=== PATIENT | female | born 1990 | race Caucasian/White ===

== ENCOUNTER 2020-02-04 01:28 | Observation (INO) | payer MEDICAID ==
[~2020-02-04] VITALS: Ht 152.4 cm; Wt 68.0 kg
[2020-02-04] MEDS ORDERED: PNV1TABL76 PO (02:37)
[2020-02-04] MEDS ORDERED: FOLI0.4T2 PO (02:37)
[2020-02-04 03:15] LABS: CLARITY URINE CLEAR (CLEAR); COLOR URINE YELLOW (YELLOW); KETONES URINE NEGATIVE (NEGATIVE); LEUKOCYTE ESTERASE URINE NEGATIVE (NEGATIVE); NITRITE URINE NEGATIVE (NEGATIVE); OCCULT BLOOD URINE NEGATIVE (NEGATIVE); PH URINE 7.5 (4.5-8.0); PROTEIN URINE NEGATIVE (NEGATIVE); SPECIFIC GRAVITY URINE 1.015 (1.005-1.030)
[2020-02-04] MEDS ORDERED: ACETAMINOPHEN 500MG TABLET PO NR (05:00)
== END 2020-02-04 05:20 | disposition home or self-care (01) ==
LOC: 8 EST LDRP 01:28
PROVIDERS: ADMIT Specialist; ATTEND Specialist
DX: O26.892 Other specified pregnancy related conditions, second trimester (principal); R10.9 Unspecified abdominal pain; O99.89 Other specified diseases and conditions complicating pregnancy, childbirth and the puerperium; M54.5 Low back pain; Z3A.26 26 weeks gestation of pregnancy
CPT/HCPCS: 76770; 81003; 99281; G0378

== ENCOUNTER 2022-12-10 17:05 | Inpatient (IN) | payer MEDICAID ==
[~2022-12-10] VITALS: Ht 162.6 cm; Wt 82.1 kg
[~2022-12-10 17:05] MED LIST: FOLI0.4T6 PO; PNV1TABL76 PO
[2022-12-10] MEDS ORDERED: AMPICILLIN 1,000 MG in SODIUM CHLORIDE 0.9% 50 ML IV SCH (20:45)
[2022-12-10] MEDS ORDERED: LIDOCAINE HCL 1% 20ML VIAL (Pyxis) INJ INFIL SCH (20:45)
[2022-12-10] MEDS ORDERED: LACTATED RINGERS 1,000 ML IV SCH (20:45)
[2022-12-10] MEDS ORDERED: AMPICILLIN 2GM in NS 100ML 100 ML IV SCH (20:45)
[2022-12-10] MEDS ORDERED: NALOXONE HCL 0.4 MG/ML 1ML VIAL IM PRN (20:45)
[2022-12-10] MEDS: LACTATED RINGERS 1,000 ML IV SCH (20:59)
[2022-12-10 21:38] LABS: BASOPHILS % 0.3 % (0.0-2.0); EOSINOPHILS % 0.4 % (0.0-5.0); HEMATOCRIT. 32.3 % (36.0-48.0); HEMOGLOBIN. 10.7 g/dL (12.0-16.0); MEAN CORPUSCULAR HEMOGLOBIN 24.6 pg (28.0-32.0); MEAN CORPUSCULAR VOLUME 74.2 fL (81.0-99.0); MEAN PLATELET VOLUME 9.1 fl (7.4-10.4); MONOCYTES % 7.4 % (2.0-8.0); NEUTROPHILS % 68.9 % (40.0-76.0); PLATELET 209 x1000/uL (130-400); RED BLOOD CELL COUNT 4.35 mill/uL (4.2-5.4); RED CELL DISTRIBUTION WIDTH 16.6 % (11.6-14.6)
[2022-12-10 21:42] LABS: CLARITY URINE CLOUDY (CLEAR); COLOR URINE YELLOW (YELLOW); KETONES URINE NEGATIVE (NEGATIVE); LEUKOCYTE ESTERASE URINE 3+ (NEGATIVE); NITRITE URINE NEGATIVE (NEGATIVE); OCCULT BLOOD URINE 3+ (NEGATIVE); PROTEIN URINE NEGATIVE (NEGATIVE); SPECIFIC GRAVITY URINE 1.009 (1.005-1.030)
[2022-12-10 21:55] LABS: *AMPHETAMINES SCREEN URINE NEGATIVE (NEGATIVE); *BARBITURATES SCREEN URINE NEGATIVE (NEGATIVE); *BENZODIAZEPINES SCREEN URINE NEGATIVE (NEGATIVE); *COCAINE SCREEN URINE NEGATIVE (NEGATIVE); CANNABINOID URINE SCREEN NEGATIVE (NEGATIVE); METHADONE URINE SCREEN NEGATIVE (NEGATIVE); OPIATES URINE SCREEN NEGATIVE (NEGATIVE); PHENCYCLIDINE URINE SCREEN NEGATIVE (NEGATIVE)
[2022-12-10 21:56] LABS: INR 0.9; PARTIAL THROMBOPLASTIN TIME 25.4 sec (23.4-31.0); PROTHROMBIN TIME 9.6 sec (9.6-11.0)
[2022-12-10 22:24] LABS: HEPATITIS B SURFACE ANTIGEN NEGATIVE
[2022-12-10] MEDS: OXYTOCIN 30 UNITS/500ML NS PMX 500 ML IV SCH (22:38)
[2022-12-11] VITALS (7 sets, daily range): BP systolic 91–110; BP diastolic 55–63; PULSE 67–79; RESP 18–20; TEMP 97.9–98.9; O2SAT 97–98
[2022-12-11] MEDS ORDERED: NS IV SCH
[2022-12-11] MEDS ORDERED: AMPICILLIN IV SCH
[2022-12-11] MEDS ORDERED: IBUPROFEN 400MG TABLET PO PRN (00:15)
[2022-12-11] MEDS ORDERED: BENZOCAINE/LANOLIN/ALOE VERA SPRAY TOP PRN (00:15)
[2022-12-11] MEDS: LACTATED RINGERS 1,000 ML IV SCH (02:18)
[2022-12-11] MEDS: OXYTOCIN 30 UNITS/500ML NS PMX 500 ML IV SCH (02:21)
[2022-12-11] MEDS: IBUPROFEN 800MG TABLET PO PRN ×2 (02:47→08:14)
[2022-12-11 07:53] LABS: BASOPHILS % 0.3 % (0.0-2.0); EOSINOPHILS % 0.1 % (0.0-5.0); HEMATOCRIT. 29.9 % (36.0-48.0); HEMOGLOBIN. 10.1 g/dL (12.0-16.0); MEAN CORPUSCULAR VOLUME 74.2 fL (81.0-99.0); MEAN PLATELET VOLUME 9.5 fl (7.4-10.4); MONOCYTES % 8.7 % (2.0-8.0); NEUTROPHILS % 77.9 % (40.0-76.0); PLATELET 200 x1000/uL (130-400); RED BLOOD CELL COUNT 4.03 mill/uL (4.2-5.4); RED CELL DISTRIBUTION WIDTH 16.5 % (11.6-14.6)
[2022-12-11 07:55] LABS: CHLORIDE 114 mEq/L (98-107)
[2022-12-11] MEDS: PRENATAL VIT/FE FUMARATE/FA TABLET PO SCH (08:23)
[2022-12-12 04:00] VITALS: BP 91/53; PULSE 70; RESP 18; TEMP 97.9
[2022-12-12] MEDS ORDERED: FERR-63 PO (07:15)
[2022-12-12] MEDS ORDERED: IBUP-2030 PO (07:15)
[2022-12-12] MEDS ORDERED: FERROUS SULFATE 325MG TABLET PO SCH (07:30)
[2022-12-12 07:50] VITALS: BP 98/64; PULSE 72; RESP 18; TEMP 98.1; O2SAT 99
[2022-12-12] MEDS: PRENATAL VIT/FE FUMARATE/FA TABLET PO SCH (08:20)
== END 2022-12-12 14:35 | disposition home or self-care (01) | DRG 560 ==
LOC: 8 EST LDRP 17:05 → OBSVTOIN 17:05 → 8EST 12-11 02:30
PROVIDERS: ADMIT Obstetrics & Gynecology; ATTEND Obstetrics & Gynecology
PROC: 10E0XZZ Delivery of Products of Conception, External Approach (ICD-10-PCS; principal; 2022-12-10)
DX: O69.81X0 Labor and delivery complicated by cord around neck, without compression, not applicable or unspecified (principal); Z37.0 Single live birth; O77.0 Labor and delivery complicated by meconium in amniotic fluid; Z20.822 Contact with and (suspected) exposure to COVID-19; Z3A.39 39 weeks gestation of pregnancy; O90.81 Anemia of the puerperium
CPT/HCPCS: 36415; 80048; 80305; 81003; 85025; 86592; 86703; 86762; 86850; 86900; 87340; 87426; 99281; G0378; J0290; J7120; J2590

== ENCOUNTER 2023-01-21 21:46 | Emergency (ER) | payer MEDICAID ==
[~2023-01-21] VITALS: Ht 152.4 cm; Wt 72.5 kg
[~2023-01-21 21:46] MED LIST changes: +FERR-63 PO; +IBUP-2030 PO
[2023-01-21 21:52] VITALS: O2SAT 100
[2023-01-21 22:21] LABS: BASOPHILS % 0.1 % (0.0-2.0); EOSINOPHILS % 0.8 % (0.0-5.0); HEMOGLOBIN. 11.9 g/dL (12.0-16.0); LYMPHOCYTES % 15.6 % (20.0-50.0); MEAN CORPUSCULAR HEMOGLOBIN 25.1 pg (28.0-32.0); MEAN PLATELET VOLUME 8.5 fl (7.4-10.4); MONOCYTES % 6.9 % (2.0-8.0); NEUTROPHILS % 76.6 % (40.0-76.0); PLATELET 185 x1000/uL (130-400); RED BLOOD CELL COUNT 4.74 mill/uL (4.2-5.4); RED CELL DISTRIBUTION WIDTH 17.5 % (11.6-14.6)
[2023-01-21 22:30] LABS: CHLORIDE 108 mEq/L (98-107); HCG SCREEN NEGATIVE
[2023-01-21 22:35] LABS: CLARITY URINE CLOUDY (CLEAR); COLOR URINE DARK YELLOW (YELLOW); KETONES URINE TRACE (NEGATIVE); LEUKOCYTE ESTERASE URINE 2+ (NEGATIVE); NITRITE URINE NEGATIVE (NEGATIVE); OCCULT BLOOD URINE TRACE (NEGATIVE); PROTEIN URINE 2+ (NEGATIVE); SPECIFIC GRAVITY URINE 1.035 (1.005-1.030)
[2023-01-21] MEDS ORDERED: ACETAMINOPHEN 325MG TABLET PO ONE (22:45)
[2023-01-21] MEDS ORDERED: IBUPROFEN 400MG TABLET PO ONE (22:45)
[2023-01-21 22:54] VITALS: TEMP 100.3
[2023-01-21 22:55] VITALS: BP 106/67; PULSE 100; RESP 12
[2023-01-21] MEDS ORDERED: TOPUD MT (22:59)
[2023-01-21] MEDS ORDERED: CEPH500C2 MT (22:59)
== END 2023-01-21 23:23 | disposition home or self-care (01) ==
LOC: ER 21:46
DX: N39.0 Urinary tract infection, site not specified (principal); N61.0 Mastitis without abscess
CPT/HCPCS: 36415; 71045; 80048; 81003; 84703; 85025; 99284